=== PATIENT | female | born 1950 | race Caucasian/White ===

== ENCOUNTER 2016-05-18 14:35 | Inpatient (IN) | payer MEDICARE, BC ==
[~2016-05-18] VITALS: Ht 165.1 cm; Wt 96.2 kg
[2016-05-18] VITALS (515 sets, daily range): BP systolic 122–176; BP diastolic 70–109; PULSE 60–81; TEMP 98–99.1; O2SAT 92–100
[~2016-05-18 14:35] MED LIST: CALCIUM 500500 MG; DUO-KAPS1 CAP; FLEXERIL 1010 MG/TAB PO; GLUCOSAMINE & C1 CA1; LORTAB 5/500 501 TAB PO; NAPROSYN500 MG PO; ZOCOR5 MG PO
[2016-05-18] MEDS ORDERED: ALEVE 220MG220 MG PO (15:06)
[2016-05-18] MEDS ORDERED: PREVACID 15MG15 M1 PO (15:06)
[2016-05-18 16:05] LABS: TROPONIN-I < 0.012 ng/mL (0.000-0.034)
[2016-05-18] MEDS ORDERED: ZOCOR 40MG40 MG PO (17:10)
[2016-05-18 17:36] LABS: ANION GAP 9 mmol/L (7-16); BLOOD UREA NITROGEN 16 mg/dL (7-17); CALCIUM 9.4 mg/dL (8.4-10.2); CARBON DIOXIDE 30 mmol/L (22-30); CHLORIDE 103 mmol/L (98-107); CREATININE, serum 0.78 mg/dL (0.52-1.25); GLUCOSE 152 mg/dL (74-106); POTASSIUM 3.8 mmol/L (3.4-5.0); SODIUM 141 mmol/L (137-145)
[2016-05-18 17:45] LABS: B-TYPE NATRIURETIC PEPTIDE 268 pg/mL (0-125)
[2016-05-18 18:46] LABS: HEMOGLOBIN 13.7 g/dl (12.5-16.0); MEAN CELL VOLUME 88 fl (80.0-100.0); MEAN CORPUSCULAR HEMOGLOBIN 30 pg (27.0-31.0); MEAN CORPUSCULAR HGB CONC 33 g/dl (33.0-37.0); MEAN PLATELET VOLUME 10.2 fl (7.4-10.4); PLATELET COUNT 224 K/mm3 (130-400); RED BLOOD COUNT 4.64 M/mm3 (4.10-5.30); REDCELL DISTRIBUTION WIDTH-CV 13.5 % (11.5-14.5); WHITE BLOOD COUNT 6.8 K/mm3 (4.8-10.8)
[2016-05-18 19:01] LABS: INR 1.1 (0.8-3.0)
[2016-05-18 19:03] LABS: PARTIAL THROMBOPLASTIN TIME 31.7 SECONDS (26.0-37.0)
[2016-05-19] VITALS (756 sets, daily range): BP systolic 87–171; BP diastolic 48–99; PULSE 57–91; TEMP 96.7–98.6; O2SAT 90–100
[2016-05-19 05:26] LABS: BASO % 0.4 % (0.0-2.0); EOS # 0.1 (0.0-0.7); EOS % 1.1 % (0-4.0); GRAN # 5.4 (1.4-6.5); GRAN % 63.9 % (42.2-75.2); HEMOGLOBIN 13.3 g/dl (12.5-16.0); LYMPH # 2.4 (1.2-3.4); LYMPH % 27.8 % (20.0-51.0); MEAN CELL VOLUME 89 fl (80.0-100.0); MEAN CORPUSCULAR HEMOGLOBIN 29 pg (27.0-31.0); MEAN CORPUSCULAR HGB CONC 33 g/dl (33.0-37.0); MEAN PLATELET VOLUME 10.3 fl (7.4-10.4); MONO # 0.6 (0.1-0.6); MONO % 6.6 % (1.7-9.3); PLATELET COUNT 214 K/mm3 (130-400); RED BLOOD COUNT 4.52 M/mm3 (4.10-5.30); REDCELL DISTRIBUTION WIDTH-CV 13.4 % (11.5-14.5); WHITE BLOOD COUNT 8.5 K/mm3 (4.8-10.8)
[2016-05-19 05:36] LABS: CALCIUM 9.3 mg/dL (8.4-10.2); CREATININE, serum 0.81 mg/dL (0.52-1.25); MAGNESIUM 2.1 mg/dL (1.6-2.3); POTASSIUM 4.4 mmol/L (3.4-5.0)
[2016-05-19 05:42] LABS: INR 1.1 (0.8-3.0); PROTHROMBIN TIME 12.6 SECONDS (9.7-12.8)
[2016-05-20 00:19] VITALS: BP 111/43; PULSE 58; TEMP 98
[2016-05-20 04:28] VITALS: BP 130/61; PULSE 63; TEMP 98.4
[2016-05-20 07:49] VITALS: BP 136/69; PULSE 58; TEMP 98.2
== END 2016-05-20 10:53 | disposition home or self-care (01) | DRG 287 ==
LOC: IMCU 14:35 → MEDICAL 05-19 14:43
PROVIDERS: Family Medicine; Internal Medicine; Internal Medicine Cardiovascular Disease
PROC: B2111ZZ Fluoroscopy of Multiple Coronary Arteries using Low Osmolar Contrast (ICD-10-PCS; principal; 2016-05-19)
PROC: B2151ZZ Fluoroscopy of Left Heart using Low Osmolar Contrast (ICD-10-PCS; 2016-05-19)
PROC: 4A023N7 Measurement of Cardiac Sampling and Pressure, Left Heart, Percutaneous Approach (ICD-10-PCS; 2016-05-19)
DX: I48.0 Paroxysmal atrial fibrillation (principal); I16.0 Hypertensive urgency; G47.33 Obstructive sleep apnea (adult) (pediatric)
CPT/HCPCS: 99223-AI; 99233-AI; 99239; C1769; C1887; C1894; G0378; J1644; J2250; J2405; J3010; Q9967

== ENCOUNTER → 2017-04-09 | Outpatient (CLI) | payer MEDICARE, BC ==
[~2017-04-09] MED LIST changes: +ALEVE 220MG220 MG PO; +PREVACID 15MG15 M1 PO; +ZOCOR 40MG40 MG PO
== END ==
LOC: MC.RAD 04-02 09:40
DX: Z12.31 Encounter for screening mammogram for malignant neoplasm of breast (principal)

== ENCOUNTER 2017-05-13 01:00 | Emergency (ER) | payer MEDICARE, BC ==
[~2017-05-13] VITALS: Ht 170.2 cm; Wt 81.4 kg
[2017-05-13 01:06] VITALS: TEMP 97.6
[2017-05-13] MEDS ORDERED: GLUCOSAMINE & C1 CA2 PO (01:13)
[2017-05-13] MEDS ORDERED: XARELTO20 MG PO (01:13)
[2017-05-13 01:39] LABS: BASO % 0.5 % (0.0-2.0); EOS # 0.2 (0.0-0.7); EOS % 2.6 % (0-4.0); HEMATOCRIT 40.9 % (37.0-47.0); HEMOGLOBIN 13.5 g/dl (12.5-16.0); LYMPH # 2.1 (1.2-3.4); LYMPH % 36.6 % (20.0-51.0); MEAN CELL VOLUME 90 fl (80.0-100.0); MEAN CORPUSCULAR HEMOGLOBIN 30 pg (27.0-31.0); MEAN CORPUSCULAR HGB CONC 33 g/dl (33.0-37.0); MEAN PLATELET VOLUME 10.5 fl (7.4-10.4); MONO # 0.5 (0.1-0.6); MONO % 8.1 % (1.7-9.3); PLATELET COUNT 199 K/mm3 (130-400); RED BLOOD COUNT 4.53 M/mm3 (4.10-5.30); REDCELL DISTRIBUTION WIDTH-CV 13.2 % (11.5-14.5)
[2017-05-13 01:49] LABS: ALANINE AMINOTRANSFERASE 44 U/L (9-52); ALBUMIN 4.6 gm/dL (3.5-5.0); ALKALINE PHOSPHATASE 92 U/L (50-136); ANION GAP 10 mmol/L (7-16); AST,SGOT 39 U/L (15-37); BILIRUBIN,TOTAL 0.5 mg/dL (0.0-1.0); BLOOD UREA NITROGEN 19 mg/dL (7-17); CALCIUM 9.9 mg/dL (8.4-10.2); CARBON DIOXIDE 27 mmol/L (22-30); CHLORIDE 103 mmol/L (98-107); CREATININE, serum 0.97 mg/dL (0.52-1.25); GLUCOSE 96 mg/dL (74-106); POTASSIUM 3.9 mmol/L (3.4-5.0); SODIUM 140 mmol/L (137-145); TOTAL PROTEIN 7.6 gm/dL (6.4-8.2)
[2017-05-13 02:03] LABS: TROPONIN-I < 0.012 ng/mL (0.000-0.034)
[2017-05-13] MEDS ORDERED: LOPRESSOR 225 MG/TAB PO (02:42)
[2017-05-13 03:02] VITALS: BP 158/82; PULSE 83
== END 2017-05-13 03:00 | disposition home or self-care (01) ==
LOC: COL.ER 01:00
PROVIDERS: Emergency Medicine
DX: R00.2 Palpitations (principal); E78.5 Hyperlipidemia, unspecified; Z86.79 Personal history of other diseases of the circulatory system

== ENCOUNTER 2017-08-20 09:36 | Emergency (ER) | payer MEDICARE, BC ==
[~2017-08-20] VITALS: Ht 170.2 cm; Wt 80.5 kg
[~2017-08-20 09:36] MED LIST changes: +GLUCOSAMINE & C1 CA2 PO; +LOPRESSOR 225 MG/TAB PO; +XARELTO20 MG PO
[2017-08-20 09:49] VITALS: TEMP 97.1
[2017-08-20 10:45] LABS: BASO % 0.4 % (0.0-2.0); EOS # 0.1 (0.0-0.7); GRAN # 5.2 (1.4-6.5); GRAN % 71.6 % (42.2-75.2); HEMATOCRIT 40.5 % (37.0-47.0); HEMOGLOBIN 13.5 g/dl (12.5-16.0); LYMPH # 1.4 (1.2-3.4); LYMPH % 19.1 % (20.0-51.0); MEAN CELL VOLUME 89 fl (80.0-100.0); MEAN CORPUSCULAR HEMOGLOBIN 30 pg (27.0-31.0); MEAN CORPUSCULAR HGB CONC 33 g/dl (33.0-37.0); MEAN PLATELET VOLUME 10.3 fl (7.4-10.4); MONO # 0.5 (0.1-0.6); MONO % 7.5 % (1.7-9.3); PLATELET COUNT 197 K/mm3 (130-400); RED BLOOD COUNT 4.53 M/mm3 (4.10-5.30); REDCELL DISTRIBUTION WIDTH-CV 12.6 % (11.5-14.5)
[2017-08-20 10:51] LABS: ANION GAP 8 mmol/L (7-16); BLOOD UREA NITROGEN 17 mg/dL (7-17); CARBON DIOXIDE 30 mmol/L (22-30); CHLORIDE 102 mmol/L (98-107); GLUCOSE 114 mg/dL (74-106); POTASSIUM 4.3 mmol/L (3.4-5.0); SODIUM 140 mmol/L (137-145)
[2017-08-20 11:06] LABS: TROPONIN-I < 0.012 ng/mL (0.000-0.034)
[2017-08-20] MEDS ORDERED: NAPROXEN 3375 MG/TAB PO (11:50)
[2017-08-20] MEDS ORDERED: LIDODERM 5% PATC1 EA TP (11:51)
[2017-08-20 12:15] VITALS: BP 143/76; PULSE 65
== END 2017-08-20 12:16 | disposition home or self-care (01) ==
LOC: COL.ER 09:36
PROVIDERS: Emergency Medicine
DX: M54.12 Radiculopathy, cervical region (principal); R55 Syncope and collapse; I48.91 Unspecified atrial fibrillation

== ENCOUNTER → 2018-03-25 | Outpatient (REF) ==
[~2018-03-25] MED LIST changes: +LIDODERM 5% PATC1 EA TP; +NAPROXEN 3375 MG/TAB PO
== END ==
LOC: ZLAB.WCH 16:22
DX: Z01.89 Encounter for other specified special examinations (principal)

== ENCOUNTER → 2018-04-23 | Outpatient (CLI) | payer MEDICARE, BC | LOC: MC.RAD 10:31 | DX: Z12.31 Encounter for screening mammogram for malignant neoplasm of breast (principal) ==

== ENCOUNTER → 2019-05-01 | Outpatient (CLI) | payer MEDICARE, BC | LOC: MC.RAD 08:54 | DX: Z12.31 Encounter for screening mammogram for malignant neoplasm of breast (principal) ==

== ENCOUNTER → 2020-05-03 | Outpatient (CLI) | payer MEDICARE, BC | LOC: MC.RAD 09:58 | DX: Z12.31 Encounter for screening mammogram for malignant neoplasm of breast (principal) ==

== ENCOUNTER 2020-09-09 07:56 | Outpatient (CLI) | payer MEDICARE, BC ==
[~2020-09-09] VITALS: Ht 170.2 cm; Wt 79.1 kg
[2020-09-09] VITALS (8 sets, daily range): BP systolic 136–167; BP diastolic 63–101; PULSE 59–74; TEMP 98
[2020-09-09] MEDS ORDERED: CENTRUM SILVER1 CTB PO (08:31)
[2020-09-09] MEDS ORDERED: ASPIRIN E.C. 8181 MG PO (08:32)
[2020-09-09] MEDS ORDERED: PREVACID 15MG15 M1 PO (08:32)
[2020-09-09 08:33] LABS: HEMATOCRIT 40.9 % (37.0-47.0); HEMOGLOBIN 13.4 g/dl (12.5-16.0); MEAN CELL VOLUME 88 fl (80.0-100.0); MEAN CORPUSCULAR HEMOGLOBIN 29 pg (27.0-31.0); MEAN CORPUSCULAR HGB CONC 33 g/dl (33.0-37.0); MEAN PLATELET VOLUME 10.5 fl (7.4-10.4); PLATELET COUNT 193 K/mm3 (130-400); RED BLOOD COUNT 4.64 M/mm3 (4.10-5.30); REDCELL DISTRIBUTION WIDTH-CV 13.5 % (11.5-14.5)
[2020-09-09] MEDS ORDERED: CALTRATE-600 W600 MG PO (08:33)
[2020-09-09] MEDS ORDERED: ZOCOR 40MG40 MG PO (08:33)
[2020-09-09] MEDS ORDERED: FLONASEALLERGY NS (08:37)
[2020-09-09] MEDS ORDERED: HALCION0.25 MG PO (08:38)
[2020-09-09 08:39] LABS: INR 1.1 (0.8-3.0); PROTHROMBIN TIME 12.4 SECONDS (9.7-12.8)
[2020-09-09] MEDS ORDERED: ALEVE 220MG220 MG PO (08:39)
[2020-09-09 08:45] LABS: CREATININE, serum 0.8 (0.52-1.25)
--- NOTE | 2020-09-09 09:53 | NUR ---
SEE MERGE DOCUMENTATION FOR MEDICATION ADMINISTRATION TIMES AND INTRA/POST PROCEDURE SEDATION ASSESSMENTS. SEE ANESTHESIA RECORD DURING FAWAD.
--- NOTE | 2020-09-09 12:32 | NUR ---
DC instructions reviewed with pt and . Both express understanding. Ice was placed over loop removal site upon return from film laboratory technician. Dressing over site remains clean, dry and intact. Pt has tolerated sips of water. She is steady on feet around room. IV DC'd with catheter intact. She is assisted out to 's car by wheelchair.
== END 2020-09-09 12:35 | disposition home or self-care (01) ==
LOC: COL.RAD 07:56
PROVIDERS: Internal Medicine Cardiovascular Disease
DX: I51.7 Cardiomegaly (principal)
CPT/HCPCS: J2250; J2704

== ENCOUNTER → 2021-05-04 | Outpatient (CLI) | payer MEDICARE, BC ==
[~2021-05-04] MED LIST changes: +ASPIRIN E.C. 8181 MG PO; +CALTRATE-600 W600 MG PO; +CENTRUM SILVER1 CTB PO; +FLONASEALLERGY NS; +HALCION0.25 MG PO
== END ==
LOC: MC.RAD 09:30
DX: Z12.31 Encounter for screening mammogram for malignant neoplasm of breast (principal)

== ENCOUNTER → 2023-06-12 | Outpatient (CLI) | payer MEDICARE, BC | LOC: MC.RAD 12:54 | DX: Z12.31 Encounter for screening mammogram for malignant neoplasm of breast (principal) ==

== ENCOUNTER → 2024-01-21 | Outpatient (CLI) | payer MEDICARE, BC | LOC: COL.RAD 08:31 | DX: R07.81 Pleurodynia (principal) | CPT/HCPCS: A9503-JZ ==